=== PATIENT | female | born 1995 | race Asian ===

== ENCOUNTER 2017-05-18 09:18 | Emergency (ER) | payer OTHER ==
[2017-05-18 09:24] VITALS: BP 137/82; PULSE 78; TEMP 98.3; BMI 20.2
--- NOTE | 2017-05-18 10:14 | PDOC ---
History of Present Illness - General Chief Complaint: Laceration Stated Complaint: LACERATIONS TO RIGHT HAND AN DWRIST Time Seen by Provider: 05/18/17 09:33 History Source: Patient Exam Limitations: No Limitations - History of Present Illness Initial Comments: 22 yo F no PMH presents with lacerations to the R hand and wrist sustained while cutting plastic wrap this morning. Occurred just [employer]. No other injuries. Mild bleeding at the time. She cleaned it with fresh water, and has been applying pressure to the wound. Her last tetanus booster was 10 years ago. Past History - Past Medical History Allergies/Adverse Reactions: Allergies Allergy/AdvReac Type Severity Reaction Status Date / Time No Known Allergies Allergy Verified 05/18/17 09:19 Home Medications: Ambulatory Orders NK [No Known Home Medication] 05/18/17 Other medical history: PT DENIES - Psycho/Social/Smoking Cessation Hx Anxiety: No Suicidal Ideation: No Smoking History: Never smoked Information on smoking cessation initiated: No Hx Alcohol Use: No Drug/Substance Use Hx: No Substance Use Type: None Review of Systems - Review of Systems Able to Perform ROS?: Yes Comments:: GENERAL/CONSTITUTIONAL: No fever or chills. No weakness. MUSCULOSKELETAL: No joint or muscle swelling or pain. No neck or back pain. SKIN: No rash. +Lacerations to the R hand and wrist. NEUROLOGIC: No headache, vertigo, loss of consciousness, or change in strength/ sensation. HEMATOLOGIC/LYMPHATIC: No anemia, easy bleeding, or history of blood clots. *Physical Exam - Vital Signs Last Vital Signs Temp Pulse Resp BP Pulse Ox 98.3 F 78 18 137/82 100 05/18/17 09:19 05/18/17 09:19 05/18/17 09:19 05/18/17 09:19 05/18/17 09:19 - Physical Exam Comments: GENERAL: Awake, alert, and fully oriented, in no acute distress HEAD: No signs of trauma EXTREMITIES: R hand with 1.5 cm laceration into subcutaneous tissue at the base of the 1st metatarsal, palmar surface of hand. +1 cm laceration over the volar wrist, just proximal to the hand, medial side. Remainder of extremities with normal range of motion, no edema. No clubbing or cyanosis. No cords, erythema, or tenderness NEUROLOGICAL: Cranial nerves II through XII grossly intact. Normal speech, normal gait SKIN: Warm, Dry, normal turgor, no rashes or lesions noted. Procedures - Laceration/Wound Repair Right Volar Wrist Wound Length: to 2.5 cm Wound Explored: clean, no foreign body present Wound's Depth, Shape: superficial, linear Irrigated w/ Saline: Yes Anesthesia: 1% Lidocaine Amount of Anesthetic (ccs): 1 Wound Repaired With: Sutures Suture Size/Type: 5:0, nylon Number of Sutures: 2 Layer Closure: No Sterile Dressing Applied: Yes Right Volar Hand Wound Length: to 2.5 cm Wound Explored: clean, no foreign body present Wound's Depth, Shape: superficial, linear Irrigated w/ Saline: Yes Amount of Anesthetic (ccs): 1 Wound Repaired With: Sutures Suture Size/Type: 5:0, nylon Number of Sutures: 3 Layer Closure: No Sterile Dressing Applied: Yes Medical Decision Making - Medical Decision Making 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 *DC/Admit/Observation/Transfer Diagnosis at time of Disposition: Laceration of hand Qualifiers: Encounter type: initial encounter Foreign body presence: without foreign body Laterality: right Qualified Code(s): S61.411A - Laceration without foreign body of right hand, initial encounter Laceration of wrist Qualifiers: Encounter type: initial encounter Laterality: right Qualified Code(s): S61.511A - Laceration without foreign body of right wrist, initial encounter - Discharge Dispostion Disposition: HOME Condition at time of disposition: Stable Admit: No - Patient Instructions Printed Discharge Instructions: DI for Laceration Repair Additional Instructions: KEEP THE WOUND DRY FOR 48 HOURS. AFTER THAT IT IS OK TO GET IT WET. NO LOTIONS, CREAMS, OINTMENTS, OR SOAPS. IF YOU HAVE SEVERE PAIN, REDNESS, FEVER, OR DRAINAGE FROM THE WOUND, RETURN TO THE ER IMMEDIATELY. RETURN BETWEEN 05/27 AND 05/29 TO HAVE STITCHES REMOVED.
[2017-05-18] MEDS ORDERED: DIPHTH,PERTUSS(ACELL),TET VAC 0.5 ML VIAL IM ONE (10:15)
== END 2017-05-18 10:26 | disposition home or self-care (01) ==
LOC: FER 09:18
PROC: 0HQFXZZ Repair Right Hand Skin, External Approach (ICD-10-PCS; principal; 2017-05-18)
PROC: 3E0234Z Introduction of Serum, Toxoid and Vaccine into Muscle, Percutaneous Approach (ICD-10-PCS; 2017-05-18)
DX: S61.511A Laceration without foreign body of right wrist, initial encounter (principal); S61.411A Laceration without foreign body of right hand, initial encounter; W26.8XXA Contact with other sharp object(s), not elsewhere classified, initial encounter; Y93.89 Activity, other specified; Y92.9 Unspecified place or not applicable
CPT/HCPCS: 99283-25